=== PATIENT | male | born 1975 | race Caucasian/White ===

== ENCOUNTER 2018-10-12 08:43 | Inpatient (IN) | payer BC ==
[~2018-10-12] VITALS: Ht 180.3 cm; Wt 86.2 kg
[2018-10-12] MEDS ORDERED: NITROGLYCERIN SUBLINGUAL 0.4 MG BOTTLE OF 25. SL PRN ×2 (09:00→11:15)
[2018-10-12] MEDS ORDERED: ASPIRIN 325 MG TABLET PO ONE (09:00)
[2018-10-12] MEDS ORDERED: MORPHINE SULFATE 2 MG/ML VIAL. IV/SQ PRN (09:00)
--- NOTE | 2018-10-12 09:00 | PHYS DOC ---
Adult General Chief Complaint Chief Complaint: CHEST PAIN HPI HPI Patient is a 43 year old with history of high cholesterol, hypertension, not on any medications, smoking, who presents today complaining of 2/10 sharp substernal chest pain nonradiating in nature that began 2 days ago and has been going on intermittently since then, he states he has had episodes of shortness of breath and lightheadedness with the chest pain. Patient denies anything exacerbating or relieving the pain. Denies pain radiating. Patient denies taking anything specifically to relieve the pain. He states he was on his way to see Dr. Espinal for the first time and decided to come to the ED to be evaluated. Review of Systems Review of Systems Constitutional: Denies fever or chills [] Eyes: Denies change in visual acuity, redness, or eye pain [] HENT: Denies nasal congestion or sore throat [] Respiratory: Denies cough or shortness of breath [] Cardiovascular: Reports chest pain GI: Denies abdominal pain, nausea, vomiting, bloody stools or diarrhea [] : Denies dysuria or hematuria [] Musculoskeletal: Denies back pain or joint pain [] Integument: Denies rash or skin lesions [] Neurologic: Denies headache, focal weakness or sensory changes [] All other systems were reviewed and found to be within normal limits, except as documented in this note. Current Medications Current Medications Current Medications Medications (Trade) Dose Ordered Sig/Clemente Start Time Stop Time Status Last Admin Dose Admin Aspirin (Yanely Aspirin) 325 mg 1X ONCE 10/12/18 09:00 10/12/18 09:06 DC 10/12/18 09:54 325 MG Clonidine HCl (Catapres) 0.1 mg 1X ONCE 10/12/18 09:45 10/12/18 09:48 DC 10/12/18 10:18 0.1 MG Hydralazine HCl (Apresoline Inj) 10 mg 1X ONCE 10/12/18 11:00 10/12/18 11:01 DC Labetalol HCl (Normodyne Iv Push) 10 mg 1X ONCE 10/12/18 10:45 10/12/18 10:46 DC 10/12/18 10:59 10 MG Morphine Sulfate (Morphine Sulfate) 2 mg PRN Q15MIN PRN 10/12/18 09:00 10/13/18 08:59 10/12/18 09:56 2 MG Nitroglycerin (Nitrostat) 0.4 mg PRN Q5MIN PRN 10/12/18 09:00 10/13/18 08:59 10/12/18 09:55 0.4 MG Allergies Allergies Allergies Coded Allergies Type Severity Reaction Last Updated Verified Sulfa (Sulfonamide Antibiotics) Adverse Reaction Severe "my kidneys shut down" 10/12/18 Yes Tetanus Vaccines and Toxoid Adverse Reaction Intermediate fever 10/12/18 Yes Physical Exam Physical Exam Constitutional: Well developed, well nourished, no acute distress, non-toxic appearance. [] HENT: Normocephalic, atraumatic, bilateral external ears normal, oropharynx moist, no oral exudates, nose normal. [] Eyes: PERRLA, EOMI, conjunctiva normal, no discharge. [] Neck: Normal range of motion, no tenderness, supple, no stridor. [] Cardiovascular:Heart rate regular rhythm, no murmur [] Lungs & Thorax: Bilateral breath sounds clear to auscultation [] Abdomen: Bowel sounds normal, soft, no tenderness, no masses, no pulsatile masses. [] Skin: Warm, dry, no erythema, no rash. [] Back: No tenderness, no CVA tenderness. [] Extremities: No tenderness, no cyanosis, no clubbing, ROM intact, no edema. [] Neurologic: Alert and oriented X 3, normal motor function, normal sensory function, no focal deficits noted. [] Psychologic: Affect normal, judgement normal, mood normal. [] Current Patient Data Vital Signs Vital Signs Date Time Temp Pulse Resp B/P (MAP) Pulse Ox O2 Delivery O2 Flow Rate FiO2 10/12/18 10:59 94 185/107 10/12/18 10:55 16 97 Room Air 10/12/18 08:52 98.1 98.1 Lab Values Laboratory Tests Test 10/12/18 09:45 10/12/18 09:50 Urine Collection Type Unknown Urine Color Yellow Urine Clarity Clear Urine pH 5.5 Urine Specific [place] 1.015 Urine Protein Negative mg/dL (NEG-TRACE) Urine Glucose (UA) Negative mg/dL (NEG) Urine Ketones (Stick) Negative mg/dL (NEG) Urine Blood Negative (NEG) Urine Nitrite Negative (NEG) Urine Bilirubin Negative (NEG) Urine Urobilinogen Dipstick 0.2 mg/dL (0.2 mg/dL) Urine Leukocyte Esterase Negative (NEG) Urine RBC 0 /HPF (0-2) Urine WBC 0 /HPF (0-4) Urine Squamous Epithelial Cells Few /LPF Urine Bacteria 0 /HPF (0-FEW) Urine Opiates Screen Neg (NEG) Urine Methadone Screen Neg (NEG) Urine Barbiturates Neg (NEG) Urine Phencyclidine Screen Neg (NEG) Urine Amphetamine/Methamphetamine Neg (NEG) Urine Benzodiazepines Screen Neg (NEG) Urine Cocaine Screen Neg (NEG) Urine Cannabinoids Screen Neg (NEG) Urine Ethyl Alcohol Neg (NEG) White Blood Count 6.7 x10^3/uL (4.0-11.0) Red Blood Count 5.11 x10^6/uL (4.30-5.70) Hemoglobin 17.0 g/dL (13.0-17.5) Hematocrit 48.8 % (39.0-53.0) Mean Corpuscular Volume 95 fL (79-100) Mean Corpuscular Hemoglobin 33 pg (25-35) Mean Corpuscular Hemoglobin Concent 35 g/dL (31-37) Red Cell Distribution Width 13.5 % (11.5-14.5) Platelet Count 189 x10^3/uL (140-400) Neutrophils (%) (Auto) 67 % (31-73) Lymphocytes (%) (Auto) 23 % (24-48) L Monocytes (%) (Auto) 7 % (0-9) Eosinophils (%) (Auto) 2 % (0-3) Basophils (%) (Auto) 1 % (0-3) Neutrophils # (Auto) 4.5 x10^3uL (1.8-7.7) Lymphocytes # (Auto) 1.6 x10^3/uL (1.0-4.8) Monocytes # (Auto) 0.5 x10^3/uL (0.0-1.1) Eosinophils # (Auto) 0.1 x10^3/uL (0.0-0.7) Basophils # (Auto) 0.0 x10^3/uL (0.0-0.2) Prothrombin Time 12.4 SEC (11.7-14.0) Prothrombin Time INR 1.0 (0.8-1.1) PTT 26 SEC (24-38) D-Dimer (Gilda) < 0.27 ug/mlFEU Sodium Level 139 mmol/L (136-145) Potassium Level 4.6 mmol/L (3.5-5.1) Chloride Level 102 mmol/L (98-107) Carbon Dioxide Level 26 mmol/L (21-32) Anion Gap 11 (6-14) Blood Urea Nitrogen 17 mg/dL (8-26) Creatinine 1.1 mg/dL (0.7-1.3) Estimated GFR (Cockcroft-Gault) 72.4 Glucose Level 121 mg/dL (70-99) H Calcium Level 9.9 mg/dL (8.5-10.1) Magnesium Level 1.9 mg/dL (1.8-2.4) Creatine Kinase 119 U/L (39-308) Creatine Kinase MB (Mass) 1.4 ng/mL (0.0-3.6) Creatine Kinase MB Relative Index 1.2 % (0-4) Troponin I Quantitative < 0.017 ng/mL (0.000-0.055) AM-Ydv-[id number]-Type Natriuretic Peptide 14 pg/mL (0-124) Thyroid Stimulating Hormone (TSH) 0.916 uIU/mL (0.358-3.74) Laboratory Tests 10/12/18 09:50 Laboratory Tests 10/12/18 09:50 EKG EKG 08:[address] Sterling-sinus rhythm HR 96 no STEMI[] Radiology/Procedures Radiology/Procedures []PROCEDURE: CT HEAD WO CONTRAST CT of the head without contrast, 10/12/2018: HISTORY: Lightheadedness The ventricles are within normal limits in size. There is no shift of the midline structures. There is no evidence of acute intracranial hemorrhage or mass effect. IMPRESSION: No acute intracranial abnormality is detected. RS Compliance Statement: One or more of the following individualized dose reduction techniques were utilized for this examination: 1. Automated exposure control 2. Adjustment of the mA and/or kV according to patient size 3. Use of iterative reconstruction technique Electronically signed by: Raza Silveira MD (10/12/2018 9:38 AM) [facility] DICTATED and SIGNED BY: RAZA SILVEIRA MD DATE: 10/12/18 0938 PROCEDURE: PORTABLE CHEST 1V PORTABLE CHEST 1V History: Midsternal chest pain for 2 days.. The heart size is not enlarged. No evidence of pneumothorax. No pleural effusion. No evidence of infiltrate. Bones appear intact. IMPRESSION: No acute infiltrate. Electronically signed by: Barry Carpio MD (10/12/2018 9:14 AM) [id number] DICTATED and SIGNED BY: BARRY CARPIO MD DATE: 10/12/18 0914 Course & Med Decision Making Course & Med Decision Making Pertinent Labs and Imaging studies reviewed. (See chart for details) This is a 43-year-old male patient presented to the ED today complaining of sub sternal chest pain, symptoms have been going on for 2 days with SOA and lightheadedness. Heart Score-3 EKG is negative, troponin is normal, chest x-ray is negative, CT of the head is negative. CBC with no acute findings, BMP with glucose of 127, d-dimer is normal Patient's blood pressure was 203/113 on arrival to the ED with a heart rate in the 90s. We gave him clonidine, blood pressure still in the 190s over low 100s. Ordered labetalol. Consulted with Dr. Luna who accepted patient for admission. He also requested hydralazine Page placed for Cardiology with routine consult in the computer Dragon Disclaimer Dragon Disclaimer This electronic medical record was generated, in whole or in part, using a voice recognition dictation system. Departure Departure Impression: Primary Impression: Smoking addiction Additional Impressions: Chest pain Accelerated hypertension Disposition: ADMITTED INPATIENT Condition: STABLE Problem Qualifiers Additional Impressions: Chest pain Chest pain type: unspecified Qualified Codes: R07.9 - Chest pain, unspecified IMAN GRAFF [employer] Oct 12, 2018 09:00
--- NOTE | 2018-10-12 09:03 | EKG ---
[facility] [address] [place] [address] Test Date: 2018-10-12 Test Time: 08:55:37 Pat Name: ALEN GARAY Department: Room: Gender: M Mill Worker: : 1975 Requested By: IMAN GRAFF Order Number: [id number] Reading MD: Measurements Intervals [place] Rate: 96 P: 49 LA: 152 QRS: 80 QRSD: 88 T: 66 QT: 348 QTc: 446 Interpretive Statements SINUS RHYTHM OTHERWISE NORMAL ECG RI6.01 Unconfirmed report No previous ECG available for comparison
--- NOTE | 2018-10-12 09:17 | RAD ---
PORTABLE CHEST 1V History: Midsternal chest pain for 2 days.. The heart size is not enlarged. No evidence of pneumothorax. No pleural effusion. No evidence of infiltrate. Bones appear intact. IMPRESSION: No acute infiltrate. Electronically signed by: Barry Carpio MD (10/12/2018 9:14 AM) [facility]
--- NOTE | 2018-10-12 09:42 | RAD ---
CT of the head without contrast, 10/12/2018: HISTORY: Lightheadedness The ventricles are within normal limits in size. There is no shift of the midline structures. There is no evidence of acute intracranial hemorrhage or mass effect. IMPRESSION: No acute intracranial abnormality is detected. RS Compliance Statement: One or more of the following individualized dose reduction techniques were utilized for this examination: 1. Automated exposure control 2. Adjustment of the mA and/or kV according to patient size 3. Use of iterative reconstruction technique Electronically signed by: Raza Silveira MD (10/12/2018 9:38 AM) [facility]
[2018-10-12] MEDS ORDERED: cloNIDine HCL 0.1 MG TABLET PO ONE (09:45)
[2018-10-12 09:58] LABS: BILIRUBIN,URINE NEGATIVE (NEG); CLARITY,URINE CLEAR; COLOR,URINE YELLOW; NITRITE,URINE NEGATIVE (NEG); PH,URINE 5.5; PROTEIN,URINE NEGATIVE (NEG-TRACE); UROBILINOGEN,URINE 0.2 mg/dL (0.2 mg/dL)
[2018-10-12 10:05] LABS: BARBITURATES NEG (NEG); BENZODIAZEPINES NEG (NEG); CANNABINOIDS NEG (NEG); COCAINE NEG (NEG); METHADONE NEG (NEG); OPIATES NEG (NEG); PHENCYCLIDINE NEG (NEG)
[2018-10-12 10:10] LABS: AMPHETAMINE/METHAMPHETAMINE NEG (NEG); BACTERIA,URINE 0 /HPF (0-FEW); RBC,URINE 0 /HPF (0-2); SQUAMOUS EPITHELIAL CELL,UR FEW /LPF; WBC,URINE 0 /HPF (0-4)
[2018-10-12 10:22] LABS: BASO % 1 % (0-3); EOS # 0.1 x10^3/uL (0.0-0.7); EOS % 2 % (0-3); HEMATOCRIT 48.8 % (39.0-53.0); LYMPH # 1.6 x10^3/uL (1.0-4.8); LYMPH % 23 % (24-48); MEAN CORPUSCULAR HEMOGLOBIN 33 pg (25-35); MEAN CORPUSCULAR HGB CONC 35 g/dL (31-37); MEAN CORPUSCULAR VOLUME 95 fL (79-100); MONO # 0.5 x10^3/uL (0.0-1.1); MONO % 7 % (0-9); NEUT # 4.5 x10^3uL (1.8-7.7); NEUT % 67 % (31-73); PLATELET COUNT 189 x10^3/uL (140-400); RED BLOOD COUNT 5.11 x10^6/uL (4.30-5.70); RED CELL DISTRIBUTION WIDTH 13.5 % (11.5-14.5); WHITE BLOOD COUNT 6.7 x10^3/uL (4.0-11.0)
[2018-10-12 10:26] LABS: CALCIUM 9.9 mg/dL (8.5-10.1); CREATININE 1.1 mg/dL (0.7-1.3); GFR 72.4; MAGNESIUM 1.9 mg/dL (1.8-2.4); POTASSIUM 4.6 mmol/L (3.5-5.1)
[2018-10-12 10:34] LABS: PARTIAL THROMBOPLASTIN TIME 26 SEC (24-38); PROTHROMBIN TIME PATIENT 12.4 SEC (11.7-14.0)
[2018-10-12] MEDS ORDERED: LABETALOL 20 MG/4 ML DISP.SYRIN. IVP ONE (10:45)
[2018-10-12 10:51] LABS: D-DIMER < 0.27 ug/mlFEU (0.00-0.50)
--- NOTE | 2018-10-12 10:58 | PDOC1 ---
History and Physical Date of Admission Date of Admission DATE: 10/12/18 TIME: 10:58 Identification/Chief Complaint Chief Complaint seen in er, 43 year old with history of high cholesterol, hypertension, not on any medications, smoking, who presents today complaining of 2/10 sharp substernal chest pain nonradiating in nature that began 2 days ago and has been going on intermittently since then, he states he has had episodes of shortness of breath and lightheadedness with the chest pain. Patient denies anything exacerbating or relieving the pain. Denies pain radiating woke up and felt like he was a dizzy but not bad enough that he was going to pass out. Past Medical History Past Medical History high cholesterol, hypertension Family History Family History: High Cholestrol, Hypertension Social History Smoke: <1 pack per day ALCOHOL: occassional Drugs: None Current Problem List Problem List Problems Medical Problems: (1) Smoking addiction Status: Acute Current Medications Current Medications Current Medications Aspirin (Yanely Aspirin) 325 mg 1X ONCE PO Last administered on 10/12/18at 09:54; Start 10/12/18 at 09:00; Stop 10/12/18 at 09:06; Status DC Nitroglycerin (Nitrostat) 0.4 mg PRN Q5MIN PRN SL CP RATING > 1/10 Last administered on 10/12/18at 09:55; Start 10/12/18 at 09:00; Stop 10/13/18 at 08:59 Morphine Sulfate (Morphine Sulfate) 2 mg PRN Q15MIN PRN IV/SQ PAIN GREATER THAN 3/10 Last administered on 10/12/18at 09:56; Start 10/12/18 at 09:00; Stop 10/13/18 at 08:59 Clonidine HCl (Catapres) 0.1 mg 1X ONCE PO Last administered on 10/12/18at 10:18; Start 10/12/18 at 09:45; Stop 10/12/18 at 09:48; Status DC Labetalol HCl (Normodyne Iv Push) 10 mg 1X ONCE IVP ; Start 10/12/18 at 10:45; Stop 10/12/18 at 10:46; Status DC Hydralazine HCl (Apresoline Inj) 10 mg 1X ONCE IVP ; Start 10/12/18 at 11:00; Stop 10/12/18 at 11:01; Status UNV Allergies Allergies: Coded Allergies: Sulfa (Sulfonamide Antibiotics) (Verified Adverse Reaction, Severe, "my kidneys shut down", 10/12/18) Tetanus Vaccines and Toxoid (Verified Adverse Reaction, Intermediate, fever, 10/12/18) ROS Review of System Review of Systems Review of Systems Constitutional: Denies fever or chills [] Eyes: Denies change in visual acuity, redness, or eye pain [] HENT: Denies nasal congestion or sore throat [] Respiratory: Denies cough or shortness of breath [] Cardiovascular: Reports chest pain, tingling left arm, not jaw GI: Denies abdominal pain, nausea, vomiting, bloody stools or diarrhea [] : Denies dysuria or hematuria [] Musculoskeletal: Denies back pain or joint pain [] Integument: Denies rash or skin lesions [] Neurologic: Denies headache, focal weakness or sensory changes [] 14 pt systems were reviewed and found to be within normal limits, except as documented PSYCHOLOGICAL ROS: No: Anxiety, Behavioral Disorder, Concentration difficultie, Decreased libido, Depression, Disorientation, Hallucinations, Hostility, Irritablity, Memory difficulties, Mood Swings, Obsessive thoughts, Physical abuse, Sexual abuse, Sleep disturbances, Suicidal ideation, Other Cardiovascular: yes Chest Pain Neurological: Yes Dizziness Physical Exam Physical Exam Physical Exam Physical Exam Constitutional: Well developed, well nourished, no acute distress, non-toxic appearance. [] HENT: Normocephalic, atraumatic, bilateral external ears normal, oropharynx moist, no oral exudates, nose normal. [] Eyes: PERRLA, EOMI, conjunctiva normal, no discharge. [] Neck: Normal range of motion, no tenderness, supple, no stridor. [] Cardiovascular:Heart rate regular rhythm, no murmur [] Lungs & Thorax: Bilateral breath sounds clear to auscultation [] Abdomen: Bowel sounds normal, soft, no tenderness, no masses, no pulsatile masses. [] Skin: Warm, dry, no erythema, no rash. [] Back: No tenderness, no CVA tenderness. [] Extremities: No tenderness, no cyanosis, no clubbing, ROM intact, no edema. [] Neurologic: Alert and oriented X 3, normal motor function, normal sensory function, no focal deficits noted. [] Psychologic: Affect normal, judgement normal, mood normal. [] General: Oriented X3, Cooperative, No acute distress HEENT: Atraumatic Lungs: Clear to auscultation Heart: RRR Abdomen: Normal bowel sounds, Soft, No tenderness Rectal Exam: not examined Extremities: No cyanosis Neuro: Normal speech, Strength at 5/5 X4 ext, Cranial nerves 3-12 NL Psych/Mental Status: Mental status NL, Mood NL Vitals Vitals Vital Signs Date Time Temp Pulse Resp B/P (MAP) Pulse Ox O2 Delivery O2 Flow Rate FiO2 10/12/18 10:55 90 16 182/107 (132) 97 Room Air 10/12/18 08:52 98.1 98.1 Labs Labs Laboratory Tests Test 10/12/18 09:45 10/12/18 09:50 Urine Collection Type Unknown Urine Color Yellow Urine Clarity Clear Urine pH 5.5 Urine Specific [place] 1.015 Urine Protein Negative mg/dL (NEG-TRACE) Urine Glucose (UA) Negative mg/dL (NEG) Urine Ketones (Stick) Negative mg/dL (NEG) Urine Blood Negative (NEG) Urine Nitrite Negative (NEG) Urine Bilirubin Negative (NEG) Urine Urobilinogen Dipstick 0.2 mg/dL (0.2 mg/dL) Urine Leukocyte Esterase Negative (NEG) Urine RBC 0 /HPF (0-2) Urine WBC 0 /HPF (0-4) Urine Squamous Epithelial Cells Few /LPF Urine Bacteria 0 /HPF (0-FEW) Urine Opiates Screen Neg (NEG) Urine Methadone Screen Neg (NEG) Urine Barbiturates Neg (NEG) Urine Phencyclidine Screen Neg (NEG) Urine Amphetamine/Methamphetamine Neg (NEG) Urine Benzodiazepines Screen Neg (NEG) Urine Cocaine Screen Neg (NEG) Urine Cannabinoids Screen Neg (NEG) Urine Ethyl Alcohol Neg (NEG) White Blood Count 6.7 x10^3/uL (4.0-11.0) Red Blood Count 5.11 x10^6/uL (4.30-5.70) Hemoglobin 17.0 g/dL (13.0-17.5) Hematocrit 48.8 % (39.0-53.0) Mean Corpuscular Volume 95 fL (79-100) Mean Corpuscular Hemoglobin 33 pg (25-35) Mean Corpuscular Hemoglobin Concent 35 g/dL (31-37) Red Cell Distribution Width 13.5 % (11.5-14.5) Platelet Count 189 x10^3/uL (140-400) Neutrophils (%) (Auto) 67 % (31-73) Lymphocytes (%) (Auto) 23 % (24-48) Monocytes (%) (Auto) 7 % (0-9) Eosinophils (%) (Auto) 2 % (0-3) Basophils (%) (Auto) 1 % (0-3) Neutrophils # (Auto) 4.5 x10^3uL (1.8-7.7) Lymphocytes # (Auto) 1.6 x10^3/uL (1.0-4.8) Monocytes # (Auto) 0.5 x10^3/uL (0.0-1.1) Eosinophils # (Auto) 0.1 x10^3/uL (0.0-0.7) Basophils # (Auto) 0.0 x10^3/uL (0.0-0.2) Prothrombin Time 12.4 SEC (11.7-14.0) Prothromb Time International Ratio 1.0 (0.8-1.1) Activated Partial Thromboplast Time 26 SEC (24-38) D-Dimer (Gilda) < 0.27 ug/mlFEU Sodium Level 139 mmol/L (136-145) Potassium Level 4.6 mmol/L (3.5-5.1) Chloride Level 102 mmol/L (98-107) Carbon Dioxide Level 26 mmol/L (21-32) Anion Gap 11 (6-14) Blood Urea Nitrogen 17 mg/dL (8-26) Creatinine 1.1 mg/dL (0.7-1.3) Estimated GFR (Cockcroft-Gault) 72.4 Glucose Level 121 mg/dL (70-99) Calcium Level 9.9 mg/dL (8.5-10.1) Magnesium Level 1.9 mg/dL (1.8-2.4) Creatine Kinase 119 U/L (39-308) Creatine Kinase MB (Mass) 1.4 ng/mL (0.0-3.6) Creatine Kinase MB Relative Index 1.2 % (0-4) Troponin I Quantitative < 0.017 ng/mL (0.000-0.055) YI-Apj-O-Type Natriuretic Peptide 14 pg/mL (0-124) Thyroid Stimulating Hormone (TSH) 0.916 uIU/mL (0.358-3.74) Laboratory Tests Test 10/12/18 09:45 10/12/18 09:50 Urine Collection Type Unknown Urine Color Yellow Urine Clarity Clear Urine pH 5.5 Urine Specific [place] 1.015 Urine Protein Negative mg/dL (NEG-TRACE) Urine Glucose (UA) Negative mg/dL (NEG) Urine Ketones (Stick) Negative mg/dL (NEG) Urine Blood Negative (NEG) Urine Nitrite Negative (NEG) Urine Bilirubin Negative (NEG) Urine Urobilinogen Dipstick 0.2 mg/dL (0.2 mg/dL) Urine Leukocyte Esterase Negative (NEG) Urine RBC 0 /HPF (0-2) Urine WBC 0 /HPF (0-4) Urine Squamous Epithelial Cells Few /LPF Urine Bacteria 0 /HPF (0-FEW) Urine Opiates Screen Neg (NEG) Urine Methadone Screen Neg (NEG) Urine Barbiturates Neg (NEG) Urine Phencyclidine Screen Neg (NEG) Urine Amphetamine/Methamphetamine Neg (NEG) Urine Benzodiazepines Screen Neg (NEG) Urine Cocaine Screen Neg (NEG) Urine Cannabinoids Screen Neg (NEG) Urine Ethyl Alcohol Neg (NEG) White Blood Count 6.7 x10^3/uL (4.0-11.0) Red Blood Count 5.11 x10^6/uL (4.30-5.70) Hemoglobin 17.0 g/dL (13.0-17.5) Hematocrit 48.8 % (39.0-53.0) Mean Corpuscular Volume 95 fL (79-100) Mean Corpuscular Hemoglobin 33 pg (25-35) Mean Corpuscular Hemoglobin Concent 35 g/dL (31-37) Red Cell Distribution Width 13.5 % (11.5-14.5) Platelet Count 189 x10^3/uL (140-400) Neutrophils (%) (Auto) 67 % (31-73) Lymphocytes (%) (Auto) 23 % (24-48) Monocytes (%) (Auto) 7 % (0-9) Eosinophils (%) (Auto) 2 % (0-3) Basophils (%) (Auto) 1 % (0-3) Neutrophils # (Auto) 4.5 x10^3uL (1.8-7.7) Lymphocytes # (Auto) 1.6 x10^3/uL (1.0-4.8) Monocytes # (Auto) 0.5 x10^3/uL (0.0-1.1) Eosinophils # (Auto) 0.1 x10^3/uL (0.0-0.7) Basophils # (Auto) 0.0 x10^3/uL (0.0-0.2) Prothrombin Time 12.4 SEC (11.7-14.0) Prothromb Time International Ratio 1.0 (0.8-1.1) Activated Partial Thromboplast Time 26 SEC (24-38) D-Dimer (Gilda) < 0.27 ug/mlFEU Sodium Level 139 mmol/L (136-145) Potassium Level 4.6 mmol/L (3.5-5.1) Chloride Level 102 mmol/L (98-107) Carbon Dioxide Level 26 mmol/L (21-32) Anion Gap 11 (6-14) Blood Urea Nitrogen 17 mg/dL (8-26) Creatinine 1.1 mg/dL (0.7-1.3) Estimated GFR (Cockcroft-Gault) 72.4 Glucose Level 121 mg/dL (70-99) Calcium Level 9.9 mg/dL (8.5-10.1) Magnesium Level 1.9 mg/dL (1.8-2.4) Creatine Kinase 119 U/L (39-308) Creatine Kinase MB (Mass) 1.4 ng/mL (0.0-3.6) Creatine Kinase MB Relative Index 1.2 % (0-4) Troponin I Quantitative < 0.017 ng/mL (0.000-0.055) NS-Zvk-Z-Type Natriuretic Peptide 14 pg/mL (0-124) Thyroid Stimulating Hormone (TSH) 0.916 uIU/mL (0.358-3.74) Images Images CT of the head without contrast, 10/12/2018: HISTORY: Lightheadedness The ventricles are within normal limits in size. There is no shift of the midline structures. There is no evidence of acute intracranial hemorrhage or mass effect. IMPRESSION: No acute intracranial abnormality is detected. RS Compliance Statement: One or more of the following individualized dose reduction techniques were utilized for this examination: 1. Automated exposure control 2. Adjustment of the mA and/or kV according to patient size 3. Use of iterative reconstruction technique Electronically signed by: Raza Silveira MD (10/12/2018 9:38 AM) [facility] VTE Prophylaxis Ordered VTE Prophylaxis Devices: Yes VTE Pharmacological Prophylaxi: Yes Assessment/Plan Assessment/Plan impression 1. chest pain, at high risk for CAD 2. tobacco abuse 3. uncontrolled htn PLAN ADMIT TO [facility]VC Cardiology consult echo lipids, trend troponin Smoking cessation, DASH diet lisinopril/chlorthalidone prn iv hydralazine 74 min pt exam, chart review> 50% of time spent with exam, chart review, pt care coordination, disease education DELL BAUER MD Oct 12, 2018 10:58
[2018-10-12] MEDS ORDERED: hydrALAZINE 20 MG/ML VIAL. IVP ONE (11:00)
[2018-10-12] MEDS ORDERED: MORPHINE SULFATE 2 MG/ML VIAL. IV PRN (11:15)
[2018-10-12] MEDS ORDERED: ONDANSETRON PF 4 MG/2 ML VIAL. IV PRN (11:15)
[2018-10-12] MEDS ORDERED: ACETAMINOPHEN 325 MG TABLET. PO PRN (11:15)
[2018-10-12 12:05] VITALS: BP 166/104
[2018-10-12] MEDS ORDERED: LISINOPRIL 10 MG TABLET PO ONE (12:45)
--- NOTE | 2018-10-12 12:57 | PDOC2 ---
ED MONTERROSO RIP AND GROOVE MACHINE OPERATOR 10/12/18 1257: CARDIAC CONSULT DATE OF CONSULT Date of Consult DATE: 10/12/18 TIME: 12:30 REASON FOR CONSULT Reason for Consult: Chest pain REFERRING PHYSICIAN Referring Physician: Marco Antonio SOURCE Source: Chart review, Patient HISTORY OF PRESENT ILLNESS HISTORY OF PRESENT ILLNESS This is a pleasant 43 yo male admitted for complains of dizziness and chest pain. Reports that he was suppose to go to his PCP today but he was not feeling well. He woke up and felt like he was a little dizzy but not bad enough that he was going to pass out. Reports no nausea or vomiting and no issues with SOA but felt some chest tightness but more of pounding. No visual or auditory disturbances or any focal symptoms. He was approx diagnosed with HTN 7 yrs ago but stopped taking his medication 5 yrs ago and could not remember when was the last time he took statins. He does not take routine NSAIDs no issues with chronic pain and denies any exertional CP nor TIRADO. Reports that he does not work and smoe tobacco but no recreational drugs. He drinks beer twice a week 6 pack in 1 sitting. No recent falls injury, and no hx of CAD, VTE or CVA. PAST MEDICAL HISTORY Cardiovascular: HTN, Hyperlipidemia Pulmonary: No pertinent hx CENTRAL NERVOUS SYSTEM: Other (No pertinent history) GI: No pertinent hx Heme/Onc: No pertinent hx Hepatobiliary: No pertinent hx Psych: No pertinent hx Musculoskeletal: Osteoarthritis Rheumatologic: No pertinent hx Infectious disease: No pertinent hx ENT: No pertinent hx Renal/: No pertinent hx Endocrine: No pertinent hx Dermatology: No pertinent hx PAST SURGICAL HISTORY Past Surgical History: No pertinent history FAMILY HISTORY Family History: Coronary Artery Disease (father at 49), Heart Disease (brother with CHF) SOCIAL HISTORY Smoke: 1 pack per day (>20 yrs) ALCOHOL: occassional Drugs: None Lives: with Family CURRENT MEDICATIONS CURRENT MEDICATIONS Current Medications Medications (Trade) Dose Ordered Sig/Clemente Route PRN Reason Start Time Stop Time Status Last Admin Dose Admin Aspirin (Yanely Aspirin) 325 mg 1X ONCE PO 10/12/18 09:00 10/12/18 09:06 DC 10/12/18 09:54 Nitroglycerin (Nitrostat) 0.4 mg PRN Q5MIN PRN SL CP RATING > 1/10 10/12/18 09:00 10/12/18 11:17 DC 10/12/18 09:55 Morphine Sulfate (Morphine Sulfate) 2 mg PRN Q15MIN PRN IV/SQ PAIN GREATER THAN 3/10 10/12/18 09:00 10/12/18 11:17 DC 10/12/18 09:56 Clonidine HCl (Catapres) 0.1 mg 1X ONCE PO 10/12/18 09:45 10/12/18 09:48 DC 10/12/18 10:18 Labetalol HCl (Normodyne Iv Push) 10 mg 1X ONCE IVP 10/12/18 10:45 10/12/18 10:46 DC 10/12/18 10:59 ALLERGIES ALLERGIES: Coded Allergies: Sulfa (Sulfonamide Antibiotics) (Verified Adverse Reaction, Severe, "my kidneys shut down", 10/12/18) Tetanus Vaccines and Toxoid (Verified Adverse Reaction, Intermediate, fever, 10/12/18) ROS Review of System 14 point ROS evaluated with pertinent positives noted per HPI PHYSICAL EXAM General: Alert, Oriented X3, Cooperative, No acute distress HEENT: Atraumatic, Mucous membr. moist/pink Lungs: Clear to auscultation, Normal air movement Heart: Regular rate (SR), Normal S1, Normal S2, Other (2/6 systolic murmur to LLS border) Abdomen: Soft, No tenderness Extremities: No cyanosis, No edema Skin: No breakdown, No significant lesion Neuro: Normal speech, Sensation intact Psych/Mental Status: Mental status NL, Mood NL MUSCULOSKELETAL: Osteoarthritic changes both hands VITALS VITALS Vital Signs Date Time Temp Pulse Resp B/P (MAP) Pulse Ox O2 Delivery O2 Flow Rate FiO2 10/12/18 11:59 84 18 160/105 (123) 97 Room Air 10/12/18 08:52 98.1 98.1 LABS Lab: Laboratory Tests Test 10/12/18 09:45 10/12/18 09:50 Urine Collection Type Unknown Urine Color Yellow Urine Clarity Clear Urine pH 5.5 Urine Specific [place] 1.015 Urine Protein Negative mg/dL (NEG-TRACE) Urine Glucose (UA) Negative mg/dL (NEG) Urine Ketones (Stick) Negative mg/dL (NEG) Urine Blood Negative (NEG) Urine Nitrite Negative (NEG) Urine Bilirubin Negative (NEG) Urine Urobilinogen Dipstick 0.2 mg/dL (0.2 mg/dL) Urine Leukocyte Esterase Negative (NEG) Urine RBC 0 /HPF (0-2) Urine WBC 0 /HPF (0-4) Urine Squamous Epithelial Cells Few /LPF Urine Bacteria 0 /HPF (0-FEW) Urine Opiates Screen Neg (NEG) Urine Methadone Screen Neg (NEG) Urine Barbiturates Neg (NEG) Urine Phencyclidine Screen Neg (NEG) Urine Amphetamine/Methamphetamine Neg (NEG) Urine Benzodiazepines Screen Neg (NEG) Urine Cocaine Screen Neg (NEG) Urine Cannabinoids Screen Neg (NEG) Urine Ethyl Alcohol Neg (NEG) White Blood Count 6.7 x10^3/uL (4.0-11.0) Red Blood Count 5.11 x10^6/uL (4.30-5.70) Hemoglobin 17.0 g/dL (13.0-17.5) Hematocrit 48.8 % (39.0-53.0) Mean Corpuscular Volume 95 fL (79-100) Mean Corpuscular Hemoglobin 33 pg (25-35) Mean Corpuscular Hemoglobin Concent 35 g/dL (31-37) Red Cell Distribution Width 13.5 % (11.5-14.5) Platelet Count 189 x10^3/uL (140-400) Neutrophils (%) (Auto) 67 % (31-73) Lymphocytes (%) (Auto) 23 % (24-48) Monocytes (%) (Auto) 7 % (0-9) Eosinophils (%) (Auto) 2 % (0-3) Basophils (%) (Auto) 1 % (0-3) Neutrophils # (Auto) 4.5 x10^3uL (1.8-7.7) Lymphocytes # (Auto) 1.6 x10^3/uL (1.0-4.8) Monocytes # (Auto) 0.5 x10^3/uL (0.0-1.1) Eosinophils # (Auto) 0.1 x10^3/uL (0.0-0.7) Basophils # (Auto) 0.0 x10^3/uL (0.0-0.2) Prothrombin Time 12.4 SEC (11.7-14.0) Prothromb Time International Ratio 1.0 (0.8-1.1) Activated Partial Thromboplast Time 26 SEC (24-38) D-Dimer (Gilda) < 0.27 ug/mlFEU Sodium Level 139 mmol/L (136-145) Potassium Level 4.6 mmol/L (3.5-5.1) Chloride Level 102 mmol/L (98-107) Carbon Dioxide Level 26 mmol/L (21-32) Anion Gap 11 (6-14) Blood Urea Nitrogen 17 mg/dL (8-26) Creatinine 1.1 mg/dL (0.7-1.3) Estimated GFR (Cockcroft-Gault) 72.4 Glucose Level 121 mg/dL (70-99) Calcium Level 9.9 mg/dL (8.5-10.1) Magnesium Level 1.9 mg/dL (1.8-2.4) Creatine Kinase 119 U/L (39-308) Creatine Kinase MB (Mass) 1.4 ng/mL (0.0-3.6) Creatine Kinase MB Relative Index 1.2 % (0-4) Troponin I Quantitative < 0.017 ng/mL (0.000-0.055) IV-Xqu-A-Type Natriuretic Peptide 14 pg/mL (0-124) Thyroid Stimulating Hormone (TSH) 0.916 uIU/mL (0.358-3.74) ASSESSMENT/PLAN ASSESSMENT/PLAN 1. Accelerated HTN 2. Dizziness and chest tightness: possibly from uncontrolled HTN 3. HLP 4. Noncompliance: last med use for HTn was 5 yrs ago. 5. Tobaccoism 6. Family hx of premature CAD Recommendations 1. TTE, lipids, trend troponin 2. Smoking cessation, dietitian for DASH diet 3. Start on lisinopril/chlorthalidone 4. Follow up in 4 weeks if test are unremarkable and will plan for outpt stress test. ENRIQUE THOMAS MD 10/13/18 0857: CARDIAC CONSULT ASSESSMENT/PLAN ASSESSMENT/PLAN Patient seen and examined 10/12/18. Agree with NET WEB APPLICATION DEVELOPER's assessment and plan. Blood pressure better controlled since admission. 2-D echo showed normal LV systolic function. Importance of compliance with medications reemphasized. Plan outpatient ischemic evaluation. Thank you for your consultation. ED MONTERROSO APRN Oct 12, 2018 12:57 ENRIQUE THOMAS MD Oct 13, 2018 08:57
[2018-10-12] MEDS: CHLORTHALIDONE 25 MG TABLET. PO SCH (13:15)
[2018-10-12] MEDS ORDERED: no home medications (13:41)
[2018-10-12 16:00] VITALS: BP 144/88
--- NOTE | 2018-10-12 16:13 | CARD ---
MR#: [id number] Date of Study: 10/12/2018 Ordering Physician: ED MONTERROSO, Referring Physician: DELL BAUER, Tech: Alexandra Ontiveros APPROVED REPORT EXAM: Two-dimensional and M-mode echocardiogram with Doppler and color Doppler. Other Information Quality : AverageHR: 91bpm INDICATION Hypertension/HCVD RISK FACTORS Hyperlipidemia Smoking 2D DIMENSIONS RVDd2.3 (2.9-3.5cm)Left Atrium(2D)3.2 (1.6-4.0cm) IVSd0.9 (0.7-1.1cm)Aortic Root(2D)3.8 (2.0-3.7cm) LVDd4.9 (3.9-5.9cm)LVOT Diameter2.3 (1.8-2.4cm) PWd1.1 (0.7-1.1cm)LVDs3.0 (2.5-4.0cm) FS (%) 39.8 %SV80.7 ml LVEF(%)70.2 (>50%) Aortic Valve AoV Peak Keyshawn.123.2cm/sAoV VTI18.8cm AO Peak GR.6.1mmHgLVOT Peak Keyshawn.100.1cm/s LVOT VTI 16.35cmAO Mean GR.3mmHg KAYLIN (VMAX)2.53xs5NPN (VTI)3.70cm2 Mitral Valve MV E Svtjqnnu22.3cm/sMV DECEL OUDJ137gd MV A Zgznbcbj80.2cm/sMV MSU56el E/A Ratio0.9MVA (PHT)4.16cm2 TDI E/Lateral E'7.1E/Medial E'10.0 Pulmonary Valve PV Peak Ukrvnrxj585.6cm/sPV Peak Grad.6mmHg Tricuspid Valve RAP [id number] Pulmonary Vein S1 Clxiwnxq46.5cm/sD2 Ygcpfcie89.9cm/s PVa [id number] LEFT VENTRICLE The left ventricle is normal size. There is borderline concentric left ventricular hypertrophy. The l eft ventricular systolic function is normal and the ejection fraction is within normal range. The Eje ction Fraction is >55%. There is normal LV segmental wall motion. Transmitral Doppler flow pattern is Grade I-abnormal relaxation pattern. RIGHT VENTRICLE The right ventricle is normal size. There is normal right ventricular wall thickness. The right ventr icular systolic function is normal. ATRIA The left atrium size is normal. The right atrium size is normal. Interatrial septal thickening is not ed. AORTIC VALVE The aortic valve is normal in structure and function. Doppler and Color Flow revealed no significant aortic regurgitation. There is no significant aortic valvular stenosis. MITRAL VALVE The mitral valve is normal in structure and function. There is no evidence of mitral valve prolapse. There is no mitral valve stenosis. Doppler and Color Flow revealed no mitral valve regurgitation note d. TRICUSPID VALVE The tricuspid valve is normal in structure and function. Doppler and Color Flow revealed trace tricus pid regurgitation with an estimated PAP of 26 mmHg. There is no tricuspid valve stenosis. PULMONIC VALVE The pulmonic valve is not well visualized. Doppler and Color Flow revealed no pulmonic valvular regur gitation. GREAT VESSELS The aortic root is normal in size. The IVC is normal in size and collapses >50% with inspiration. PERICARDIAL EFFUSION There is no evidence of significant pericardial effusion. Critical Notification Critical Value: No <Conclusion> The left ventricular systolic function is normal and the ejection fraction is within normal range. Th e Ejection Fraction is >55%. There is normal LV segmental wall motion. Signed by : Israel Bolden, Electronically Approved : 10/12/2018 16:12:12
[2018-10-12 19:05] VITALS: BP 132/88
[2018-10-12 23:05] VITALS: BP 128/91
[2018-10-13 03:10] VITALS: BP 118/89
[2018-10-13 05:23] LABS: BASO % 1 % (0-3); EOS # 0.3 x10^3/uL (0.0-0.7); EOS % 3 % (0-3); HEMATOCRIT 46.2 % (39.0-53.0); LYMPH # 3.4 x10^3/uL (1.0-4.8); LYMPH % 41 % (24-48); MEAN CORPUSCULAR HEMOGLOBIN 33 pg (25-35); MEAN CORPUSCULAR HGB CONC 35 g/dL (31-37); MEAN CORPUSCULAR VOLUME 96 fL (79-100); MONO # 0.7 x10^3/uL (0.0-1.1); MONO % 9 % (0-9); NEUT # 3.9 x10^3uL (1.8-7.7); NEUT % 47 % (31-73); PLATELET COUNT 178 x10^3/uL (140-400); RED BLOOD COUNT 4.81 x10^6/uL (4.30-5.70); RED CELL DISTRIBUTION WIDTH 13.5 % (11.5-14.5); WHITE BLOOD COUNT 8.3 x10^3/uL (4.0-11.0)
[2018-10-13 05:49] LABS: CALCIUM 9.4 mg/dL (8.5-10.1); GFR 80.8; POTASSIUM 3.9 mmol/L (3.5-5.1)
[2018-10-13 05:58] LABS: CHOLESTEROL/HDL RATIO 4.8
[2018-10-13 07:00] VITALS: BP 145/87
[2018-10-13] MEDS ORDERED: LISINOPRIL 10 MG TABLET PO SCH (09:00)
[2018-10-13] MEDS: CHLORTHALIDONE 25 MG TABLET. PO SCH (09:28)
[2018-10-13] MEDS ORDERED: ATOR40TA59 PO (09:36)
[2018-10-13] MEDS ORDERED: CHLO25TA10 PO (09:36)
[2018-10-13] MEDS ORDERED: LISI10TA2 PO (09:36)
[2018-10-13] MEDS ORDERED: NITR0.4T SL (09:36)
--- NOTE | 2018-10-13 10:38 | PDOC3 ---
Discharge Summary Visit Information Date of Admission: Oct 12, 2018 Date of Discharge: Oct 13, 2018 Admitting Diagnosis Comment: 1. Accelerated HTN 2. Dizziness and chest tightness: possibly from uncontrolled HTN 3. HLP 4. Noncompliance: last med use for HTn was 5 yrs ago. 5. Tobaccoism 6. Family hx of premature CAD Final Diagnosis Problems Medical Problems: (1) Accelerated hypertension Status: Acute (2) Chest pain Status: Acute (3) Smoking addiction Status: Acute Brief Hospital Course Allergies Allergies Coded Allergies Type Severity Reaction Last Updated Verified Sulfa (Sulfonamide Antibiotics) Adverse Reaction Severe "my kidneys shut down" 10/12/18 Yes Tetanus Vaccines and Toxoid Adverse Reaction Intermediate fever 10/12/18 Yes Vital Signs Vital Signs Date Time Temp Pulse Resp B/P (MAP) Pulse Ox O2 Delivery O2 Flow Rate FiO2 10/13/18 09:29 64 145/87 10/13/18 07:00 98.0 16 99 Room Air 98.0 Lab Results Laboratory Tests Test 10/12/18 09:45 10/12/18 09:50 10/12/18 12:50 10/12/18 16:10 Urine Collection Type Unknown Urine Color Yellow Urine Clarity Clear Urine pH 5.5 Urine Specific [place] 1.015 Urine Protein Negative mg/dL (NEG-TRACE) Urine Glucose (UA) Negative mg/dL (NEG) Urine Ketones (Stick) Negative mg/dL (NEG) Urine Blood Negative (NEG) Urine Nitrite Negative (NEG) Urine Bilirubin Negative (NEG) Urine Urobilinogen Dipstick 0.2 mg/dL (0.2 mg/dL) Urine Leukocyte Esterase Negative (NEG) Urine RBC 0 /HPF (0-2) Urine WBC 0 /HPF (0-4) Urine Squamous Epithelial Cells Few /LPF Urine Bacteria 0 /HPF (0-FEW) Urine Opiates Screen Neg (NEG) Urine Methadone Screen Neg (NEG) Urine Barbiturates Neg (NEG) Urine Phencyclidine Screen Neg (NEG) Urine Amphetamine/Methamphetamine Neg (NEG) Urine Benzodiazepines Screen Neg (NEG) Urine Cocaine Screen Neg (NEG) Urine Cannabinoids Screen Neg (NEG) Urine Ethyl Alcohol Neg (NEG) White Blood Count 6.7 x10^3/uL (4.0-11.0) Red Blood Count 5.11 x10^6/uL (4.30-5.70) Hemoglobin 17.0 g/dL (13.0-17.5) Hematocrit 48.8 % (39.0-53.0) Mean Corpuscular Volume 95 fL (79-100) Mean Corpuscular Hemoglobin 33 pg (25-35) Mean Corpuscular Hemoglobin Concent 35 g/dL (31-37) Red Cell Distribution Width 13.5 % (11.5-14.5) Platelet Count 189 x10^3/uL (140-400) Neutrophils (%) (Auto) 67 % (31-73) Lymphocytes (%) (Auto) 23 % (24-48) Monocytes (%) (Auto) 7 % (0-9) Eosinophils (%) (Auto) 2 % (0-3) Basophils (%) (Auto) 1 % (0-3) Neutrophils # (Auto) 4.5 x10^3uL (1.8-7.7) Lymphocytes # (Auto) 1.6 x10^3/uL (1.0-4.8) Monocytes # (Auto) 0.5 x10^3/uL (0.0-1.1) Eosinophils # (Auto) 0.1 x10^3/uL (0.0-0.7) Basophils # (Auto) 0.0 x10^3/uL (0.0-0.2) Prothrombin Time 12.4 SEC (11.7-14.0) Prothromb Time International Ratio 1.0 (0.8-1.1) Activated Partial Thromboplast Time 26 SEC (24-38) D-Dimer (Gilda) < 0.27 ug/mlFEU Sodium Level 139 mmol/L (136-145) Potassium Level 4.6 mmol/L (3.5-5.1) Chloride Level 102 mmol/L (98-107) Carbon Dioxide Level 26 mmol/L (21-32) Anion Gap 11 (6-14) Blood Urea Nitrogen 17 mg/dL (8-26) Creatinine 1.1 mg/dL (0.7-1.3) Estimated GFR (Cockcroft-Gault) 72.4 Glucose Level 121 mg/dL (70-99) Calcium Level 9.9 mg/dL (8.5-10.1) Magnesium Level 1.9 mg/dL (1.8-2.4) Creatine Kinase 119 U/L (39-308) Creatine Kinase MB (Mass) 1.4 ng/mL (0.0-3.6) Creatine Kinase MB Relative Index 1.2 % (0-4) Troponin I Quantitative < 0.017 ng/mL (0.000-0.055) < 0.017 ng/mL (0.000-0.055) < 0.017 ng/mL (0.000-0.055) RY-Bfw-E-Type Natriuretic Peptide 14 pg/mL (0-124) Thyroid Stimulating Hormone (TSH) 0.916 uIU/mL (0.358-3.74) Test 10/13/18 05:00 White Blood Count 8.3 x10^3/uL (4.0-11.0) Red Blood Count 4.81 x10^6/uL (4.30-5.70) Hemoglobin 16.0 g/dL (13.0-17.5) Hematocrit 46.2 % (39.0-53.0) Mean Corpuscular Volume 96 fL (79-100) Mean Corpuscular Hemoglobin 33 pg (25-35) Mean Corpuscular Hemoglobin Concent 35 g/dL (31-37) Red Cell Distribution Width 13.5 % (11.5-14.5) Platelet Count 178 x10^3/uL (140-400) Neutrophils (%) (Auto) 47 % (31-73) Lymphocytes (%) (Auto) 41 % (24-48) Monocytes (%) (Auto) 9 % (0-9) Eosinophils (%) (Auto) 3 % (0-3) Basophils (%) (Auto) 1 % (0-3) Neutrophils # (Auto) 3.9 x10^3uL (1.8-7.7) Lymphocytes # (Auto) 3.4 x10^3/uL (1.0-4.8) Monocytes # (Auto) 0.7 x10^3/uL (0.0-1.1) Eosinophils # (Auto) 0.3 x10^3/uL (0.0-0.7) Basophils # (Auto) 0.0 x10^3/uL (0.0-0.2) Sodium Level 139 mmol/L (136-145) Potassium Level 3.9 mmol/L (3.5-5.1) Chloride Level 103 mmol/L (98-107) Carbon Dioxide Level 25 mmol/L (21-32) Anion Gap 11 (6-14) Blood Urea Nitrogen 16 mg/dL (8-26) Creatinine 1.0 mg/dL (0.7-1.3) Estimated GFR (Cockcroft-Gault) 80.8 Glucose Level 98 mg/dL (70-99) Calcium Level 9.4 mg/dL (8.5-10.1) Triglycerides Level 103 mg/dL (0-150) Cholesterol Level 241 mg/dL (0-200) LDL Cholesterol, Calculated 170 mg/dL (0-100) VLDL Cholesterol, Calculated 21 mg/dL (0-40) Non-HDL Cholesterol Calculated 191 mg/dL (0-129) HDL Cholesterol 50 mg/dL (40-60) Cholesterol/HDL Ratio 4.8 Laboratory Tests Test 10/12/18 12:50 10/12/18 16:10 10/13/18 05:00 Troponin I Quantitative < 0.017 ng/mL (0.000-0.055) < 0.017 ng/mL (0.000-0.055) White Blood Count 8.3 x10^3/uL (4.0-11.0) Red Blood Count 4.81 x10^6/uL (4.30-5.70) Hemoglobin 16.0 g/dL (13.0-17.5) Hematocrit 46.2 % (39.0-53.0) Mean Corpuscular Volume 96 fL (79-100) Mean Corpuscular Hemoglobin 33 pg (25-35) Mean Corpuscular Hemoglobin Concent 35 g/dL (31-37) Red Cell Distribution Width 13.5 % (11.5-14.5) Platelet Count 178 x10^3/uL (140-400) Neutrophils (%) (Auto) 47 % (31-73) Lymphocytes (%) (Auto) 41 % (24-48) Monocytes (%) (Auto) 9 % (0-9) Eosinophils (%) (Auto) 3 % (0-3) Basophils (%) (Auto) 1 % (0-3) Neutrophils # (Auto) 3.9 x10^3uL (1.8-7.7) Lymphocytes # (Auto) 3.4 x10^3/uL (1.0-4.8) Monocytes # (Auto) 0.7 x10^3/uL (0.0-1.1) Eosinophils # (Auto) 0.3 x10^3/uL (0.0-0.7) Basophils # (Auto) 0.0 x10^3/uL (0.0-0.2) Sodium Level 139 mmol/L (136-145) Potassium Level 3.9 mmol/L (3.5-5.1) Chloride Level 103 mmol/L (98-107) Carbon Dioxide Level 25 mmol/L (21-32) Anion Gap 11 (6-14) Blood Urea Nitrogen 16 mg/dL (8-26) Creatinine 1.0 mg/dL (0.7-1.3) Estimated GFR (Cockcroft-Gault) 80.8 Glucose Level 98 mg/dL (70-99) Calcium Level 9.4 mg/dL (8.5-10.1) Triglycerides Level 103 mg/dL (0-150) Cholesterol Level 241 mg/dL (0-200) LDL Cholesterol, Calculated 170 mg/dL (0-100) VLDL Cholesterol, Calculated 21 mg/dL (0-40) Non-HDL Cholesterol Calculated 191 mg/dL (0-129) HDL Cholesterol 50 mg/dL (40-60) Cholesterol/HDL Ratio 4.8 Brief Hospital Course Mr. Tijerina is a 43 old white male who does not take any meds coming in because of chest pain and very high blood pressure. Echo was normal but we needed to start some new home meds including lisinopril, HCTZ, statin, nitroglycerin sublingual. Did also advise aspirin [id number] He's feeling much better, blood pressure good Consults performed cardiology Procedures performed echo, follow up cards in 4 weeks for blood pressure and possible outpatient MPI if warranted Discussed with at bedside dc < 30 Discharge Information Condition at Discharge: Improved, Stable Follow Up: Weeks (4 weeks cards for OP MPI) Disposition/Orders: D/C to Home Scheduled Atorvastatin Calcium (Atorvastatin Calcium) 40 Mg Tablet, 40 MG PO QHS for hlp, #60 Prescribed by: JAYSHREE DAVILA on 10/13/18 0936 Chlorthalidone (Chlorthalidone ) 25 Mg Tablet, 25 MG PO DAILY for htn, #60 Prescribed by: JAYSHREE DAVILA on 6/21/19 0936 Lisinopril (Lisinopril) 10 Mg Tablet, 10 MG PO DAILY for htn, #60 Prescribed by: JAYSHREE DAVILA on 10/13/18935 Scheduled PRN Nitroglycerin (Nitrostat) 0.4 Mg Tab.subl, 0.4 MG SL PRN Q5MIN PRN for CHEST PAIN, #60 Prescribed by: JAYSHREE DAVILA on 10/13/18935 Discontinued Medications [no home medications] , (Reported) Entered as Reported by: IVA MORRISON on 10/12/181340 Last Action: New Order on 10/12/181340 by JAYSHREE SWEET MD Oct 13, 2018 10:38
[2018-10-13 11:00] VITALS: BP 144/91
--- NOTE | 2018-10-13 11:04 | NUR ---
SS following for discharge planning. SS reviewed pt chart. Discharge order on the chart. Pt is from home and is currently on room air.
--- NOTE | 2018-10-13 11:54 | NUR ---
Discharge Note: ALEN GARAY W2 [facility] Discharge instructions and discharge home medications reviewed with Patient and a copy given. All questions have been answered and understanding verbalized. The following instructions and handouts were given: CP, DASH diet, HTN, smoking cessations and tips for success Discontinued lines and drains: Peripheral IV intact. Patient discharged to Home or Self Care with Spouse via Wheelchair
--- NOTE | 2018-10-13 12:15 | PDOC ---
ED MONTERROSO PUMPMAN 10/13/18 1215: CARDIO Progress Notes Date and Time Date of Service 10/13/2018 Time of Evaluation 1110 Subjective Subjective: No Chest Pain, No shortness of breath, No Palpitations Vitals Vitals Vital Signs Date Time Temp Pulse Resp B/P (MAP) Pulse Ox O2 Delivery O2 Flow Rate FiO2 10/13/18 11:00 97.7 77 16 144/91 (108) 95 Room Air 97.7 Weight Weight [ ] Input and Output Intake and Output Intake and Output 10/13/18 07:00 Intake Total 550 ml Balance 550 ml Intake Oral 550 ml # Voids 3 Laboratory Labs Laboratory Tests Test 10/12/18 12:50 10/12/18 16:10 10/13/18 05:00 Troponin I Quantitative < 0.017 ng/mL (0.000-0.055) < 0.017 ng/mL (0.000-0.055) White Blood Count 8.3 x10^3/uL (4.0-11.0) Red Blood Count 4.81 x10^6/uL (4.30-5.70) Hemoglobin 16.0 g/dL (13.0-17.5) Hematocrit 46.2 % (39.0-53.0) Mean Corpuscular Volume 96 fL (79-100) Mean Corpuscular Hemoglobin 33 pg (25-35) Mean Corpuscular Hemoglobin Concent 35 g/dL (31-37) Red Cell Distribution Width 13.5 % (11.5-14.5) Platelet Count 178 x10^3/uL (140-400) Neutrophils (%) (Auto) 47 % (31-73) Lymphocytes (%) (Auto) 41 % (24-48) Monocytes (%) (Auto) 9 % (0-9) Eosinophils (%) (Auto) 3 % (0-3) Basophils (%) (Auto) 1 % (0-3) Neutrophils # (Auto) 3.9 x10^3uL (1.8-7.7) Lymphocytes # (Auto) 3.4 x10^3/uL (1.0-4.8) Monocytes # (Auto) 0.7 x10^3/uL (0.0-1.1) Eosinophils # (Auto) 0.3 x10^3/uL (0.0-0.7) Basophils # (Auto) 0.0 x10^3/uL (0.0-0.2) Sodium Level 139 mmol/L (136-145) Potassium Level 3.9 mmol/L (3.5-5.1) Chloride Level 103 mmol/L (98-107) Carbon Dioxide Level 25 mmol/L (21-32) Anion Gap 11 (6-14) Blood Urea Nitrogen 16 mg/dL (8-26) Creatinine 1.0 mg/dL (0.7-1.3) Estimated GFR (Cockcroft-Gault) 80.8 Glucose Level 98 mg/dL (70-99) Calcium Level 9.4 mg/dL (8.5-10.1) Triglycerides Level 103 mg/dL (0-150) Cholesterol Level 241 mg/dL (0-200) LDL Cholesterol, Calculated 170 mg/dL (0-100) VLDL Cholesterol, Calculated 21 mg/dL (0-40) Non-HDL Cholesterol Calculated 191 mg/dL (0-129) HDL Cholesterol 50 mg/dL (40-60) Cholesterol/HDL Ratio 4.8 Physical Exam HEENT: Neck Supple W Full Motion Chest: Symmetric LUNGS: Clear to Auscultation Heart: S1S2, RRR (SR no ectopies) Abdomen: Soft N/T Extremities: No Edema, No Calf Tenderness Neurology: alert, oriented, follow commands Assessment Assessment 1. Accelerated HTN: controlled. EF and WM nml 2. Dizziness and chest tightness: possibly from uncontrolled HTN 3. HLP 4. Noncompliance: last med use for HTn was 5 yrs ago. 5. Tobaccoism 6. Family hx of premature CAD Recommendations 1. Treadmill MPI as an outpt 2. Smoking cessation, dietitian for DASH diet 3. Continue lisinopril/chlorthalidone and add statin. Consider ASA for primary prevention 4. Follow up in 4 weeks 5. Discussed adherence ENRIQUE THOMAS MD 10/13/18 1730: CARDIO Progress Notes Assessment Assessment Patient seen and examined. Agree with TIMBER INSPECTOR's assessment and plan. Blood pressure better controlled Plan for ischemic evaluation with stress test as an outpatient ED MONTERROSO APRN Oct 13, 2018 12:15 ENRIQUE THOMAS MD Oct 13, 2018 17:30
[2018-10-13] MEDS ORDERED: ATORVASTATIN CALCIUM 40 MG TABLET. PO SCH (21:00)
== END 2018-10-13 11:55 | disposition home or self-care (01) | DRG 313 ==
LOC: ER 08:43 → 2 SOUTH 10:50
PROVIDERS: ADMIT Family Medicine; ATTEND Family Medicine
DX: R07.89 Other chest pain (principal); I10 Essential (primary) hypertension; E78.00 Pure hypercholesterolemia, unspecified; E78.5 Hyperlipidemia, unspecified; M19.90 Unspecified osteoarthritis, unspecified site; F17.210 Nicotine dependence, cigarettes, uncomplicated; Z82.49 Family history of ischemic heart disease and other diseases of the circulatory system; Z91.19 Patient's noncompliance with other medical treatment and regimen; Z88.1 Allergy status to other antibiotic agents; Z88.2 Allergy status to sulfonamides; Z71.6 Tobacco abuse counseling
CPT/HCPCS: 36415; 70450; 71045; 80048; 80061; 80307; 81001; 82553; 83735; 83880; 84443; 84484; 85025; 85379; 85610; 85730; 93005; 93306; 96374; 96375; 99406; J2270; J3490; 99285-25

== ENCOUNTER → 2018-11-06 | Outpatient (CLI) | payer BC ==
[2018-10-13 11:00] VITALS: BP 144/91
[~2018-11-06] MED LIST: ATOR40TA59 PO; CHLO25TA10 PO; LISI10TA2 PO; NITR0.4T SL; no home medications
--- NOTE | 2018-11-06 14:09 | RAD ---
MR#: [id number] Date of Study: 11/06/2018 Ordering Physician: ENRIQUE THOMAS Referring Physician: JERRY VAN Tech: KYLAH Islas, ARRJessica (R) (N) APPROVED REPORT Test Type: Exercise Stress Nurse/Tech: Radha Madison R.N. Test Indications: chest pain Cardiac History: smoker Medications: see ehr Medical History: see ehr Resting ECG: sr Resting Heart Rate: 71 bpm Resting Blood Pressure: 136/74mmHg Pretest Chest Pain: No chest pain Nurse/Tech Notes lungs cta, heart tones regular Consent: The procedure was explained to the patient in lay terms. Informed consent was witnessed. Lavon eout was entered into [employer]. History and Stress Test performed by RT Alex (R) (N) Stress Symptoms No chest pain or symptoms. POST EXERCISE Reason for Termination: Reached target heart rate Target HR: Yes Max HR: 169 bpm 96% of Maximum Predicted HR: 175 bpm Exercise duration: 7:15 min:sec, 3 Stage Exercise capacity: 10.0METs Max Blood Pressure: 180/82mmHg Blood Pressure response to exercise: Normal blood pressure response during stress. Heart Rate response to exercise: normal Chest Pain: No. Arrhythmia: No. INTERPRETATION Stress EKG Conclusion: The baseline EKG showed a sinus rhythm with nonspecific ST-T wave changes. The stress EKG showed further mild nonspecific ST T-wave changes that are not diagnostic of ischemia. No EKG evidence of stress-induced ischemia. Imaging Protocol IMAGE PROTOCOL: Rest Tc-99m/stress Tc-99m 1 day Rest: Stress: Viability: Radiopharm.Tc99m BxtyecchkEd60g Sestamibi Dose11.7mCi 33mCi Img Date 11/06/2018 11/06/2018 Inj-Img [id number]. 60min. Rest Admin Site:IV - Right AntecubitalAdministrator:RAJESH Gale Stress Admin Site: IV - Right AntecubitalAdministrator: RT Alex (R)(N) STRESS DATA End Diast. Vol.71.0mlAv. Heart Rate99.0bpm End Syst. Vol.17.0mlCO Index BSA0.0L/min Myocardial Odlh970.0gEject. Jjigdfho54.0% Stress Rates Pk. Fill Rate4.73EDV/secLVtime Pk. Fill 185.81msec Pk. Empty Rate7.64ESV/secLVtime Pk. Eject78.34msec 1/3 Pk. Fill1.50EDV/sec Stress Scores Regional WT2.00Summed WT14.00 Regional WM0.00Summed WM2.00 LV Perfusion The stress scans showed no significant defects. The rest scans showed no significant defects. Nuclear imaging shows no reversible ischemia or infarct. Wall Motion Left ventricular systolic function is normal with no regional wall motion abnormalities and an ejecti on fraction of greater than 70%. LV Perf. Quant 17 Seg. SSS1.00 17 Seg. SRS4.00 17 Seg. SDS0.00 Stress Defect Extent (% LAD)0.00Rest Defect Extent (% LAD)0.00Rev. Defect Extent (% LAD)0.00 Stress Defect Extent (% LCX) 0.00Rest Defect Extent (% LCX)0.00Rev. Defect Extent (% LCX)0.00 Stress Defect Extent (% RCA)2.20Rest Defect Extent (% RCA)0.00Rev. Defect Extent (% RCA)0.00 Stress Defect Extent (% ZOILA)0.90Rest Defect Extent (% ZOILA)0.00Rev. Defect Extent (% ZOILA)0.00 Conclusion 1. Good exercise tolerance. 2. No EKG evidence of stressed induced ischemia. 3. Nuclear imaging shows no reversible ischemia or infarct. 4. Left ventricular systolic function is normal with an ejection fraction of greater than 70%. 5. Low risk treadmill nuclear stress test. Signed by : Lazaro Lyn MD Electronically Approved : 11/06/2018 14:09:16
== END | disposition home or self-care (01) ==
LOC: NM 09:02
PROVIDERS: ATTEND Internal Medicine Cardiovascular Disease
DX: R07.9 Chest pain, unspecified (principal); F17.200 Nicotine dependence, unspecified, uncomplicated
CPT/HCPCS: 78452; 93017; 96376; A9500

== ENCOUNTER → 2020-07-29 | Outpatient (CLI) | payer BC ==
[~2020-07-29] MED LIST changes: +LISI10TA16 PO; -LISI10TA2 PO; -NITR0.4T SL; +NITR0.4T24 SL
--- NOTE | 2020-07-29 17:31 | CARD ---
MR#: [id number] Date of Study: 07/29/2020 Ordering Physician: ENRIQUE THOMAS, Referring Physician: ENRIQUE THOMAS Tech: Beth Griffin [facility] APPROVED REPORT EXAM: Two-dimensional and M-mode echocardiogram with Doppler and color Doppler. Other Information Quality : AverageHR: 79bpm Rhythm : NSR INDICATION Hypertension/HCVD RISK FACTORS Hypertension Hyperlipidemia Smoking 2D DIMENSIONS RVDd3.2 (2.9-3.5cm)Left Atrium(2D)3.5 (1.6-4.0cm) IVSd1.1 (0.7-1.1cm)Aortic Root(2D)4.1 (2.0-3.7cm) LVDd4.6 (3.9-5.9cm)LVOT Diameter2.5 (1.8-2.4cm) PWd1.1 (0.7-1.1cm)LVDs2.6 (2.5-4.0cm) FS (%) 44.1 %SV75.2 ml Aortic Valve AoV Peak Keyshawn.105.8cm/sAoV VTI21.8cm AO Peak GR.4.5mmHgLVOT Peak Keyshawn.102.6cm/s AO Mean GR.2mmHgAVA (VMAX)4.66cm2 Mitral Valve MV E Xtxacgyw86.5cm/sMV DECEL LJSC101ax MV A Hypwywar15.4cm/sE/A Ratio1.1 Pulmonary Valve PV Peak Muittbmh41.9cm/s Tricuspid Valve TR P. Gxtnrcna203eu/sTR Peak Gr.21mmHg LEFT VENTRICLE The left ventricle is normal size. There is borderline concentric left ventricular hypertrophy. The l eft ventricular systolic function is normal and the ejection fraction is within normal range. Estimat ed ejection fraction 55-60%. There is normal LV segmental wall motion. The left ventricular diastolic function and filling is normal for age. RIGHT VENTRICLE The right ventricle is normal size. There is normal right ventricular wall thickness. The right ventr icular systolic function is normal. ATRIA The left atrium size is normal. The right atrium size is normal. The interatrial septum is intact wit h no evidence for an atrial septal defect or patent foramen ovale as noted on 2-D or Doppler imaging. AORTIC VALVE The aortic valve is normal in structure and function. Doppler and Color Flow revealed no significant aortic regurgitation. There is no significant aortic valvular stenosis. MITRAL VALVE The mitral valve is normal in structure and function. There is no evidence of mitral valve prolapse. There is no mitral valve stenosis. Doppler and Color Flow revealed no mitral valve regurgitation note d. TRICUSPID VALVE The tricuspid valve is normal in structure and function. Doppler and Color Flow revealed trace tricus pid regurgitation. Estimated PAP 24 mmHg. There is no tricuspid valve stenosis. PULMONIC VALVE The pulmonary valve is normal in structure and function. Doppler and Color Flow revealed no pulmonic valvular regurgitation. GREAT VESSELS The aortic root is mildly enlarged. The IVC is normal in size and collapses >50% with inspiration. PERICARDIAL EFFUSION There is no evidence of significant pericardial effusion. Critical Notification Critical Value: No <Conclusion> The left ventricle is normal size. The left ventricular systolic function is normal and the ejection fraction is within normal range. Estimated ejection fraction 55-60%. There is borderline concentric left ventricular hypertrophy. Doppler and Color Flow revealed no significant aortic regurgitation. There is no significant aortic valvular stenosis. Doppler and Color Flow revealed no mitral valve regurgitation noted. Doppler and Color Flow revealed trace tricuspid regurgitation. Estimated PAP 24 mmHg. The aortic root is mildly enlarged. Signed by : Lazaro Lyn MD Electronically Approved : 07/29/2020 17:30:39
== END ==
LOC: ECHO 08:27
PROVIDERS: ATTEND Internal Medicine Cardiovascular Disease
DX: I11.9 Hypertensive heart disease without heart failure (principal)
CPT/HCPCS: 93306

== ENCOUNTER 2021-05-13 07:17 | Emergency (ER) | payer BC ==
[~2021-05-13] VITALS: Ht 177.8 cm; Wt 86.3 kg
[2021-05-13 07:21] VITALS: BP 177/101
[2021-05-13] MEDS ORDERED: IV NORMAL SALINE 1000ML BAG 1,000 ML IV SCH (07:30)
--- NOTE | 2021-05-13 07:33 | ED.ADGEN ---
Past Medical History Past Medical History: High Cholesterol, Hypertension Past Surgical History: No Surgical History Smoking Status: Current Every Day Smoker Alcohol Use: Occasionally Drug Use: None General Adult EDM: Chief Complaint: GI PROBLEM HPI: HPI: Patient is a 46-year-old male who arrives ambulatory to the emergency department complaining of the acute onset of lower abdominal pain. Patient states at roughly 230 this morning the patient began experiencing lower abdominal pain which she described as sharp and abrupt. Patient reports she had loose stool during this time as well which had bright red blood. Patient also reports slight nausea during this time as well. Patient points to the abdomen in the lower region near his bladder. He states when the pain happens it is very sharp however right now he has just a dull ache. He denies radiation of this pain. He further denies any vomiting or fevers. Additionally he denies any dysuria or previous events that have been consistent with this episode. He is awake, alert and nontoxic. Review of Systems: Review of Systems: Constitutional: Denies fever or chills. [] Eyes: Denies change in visual acuity. [] HENT: Denies nasal congestion or sore throat. [] Respiratory: Denies cough or shortness of breath. [] Cardiovascular: Denies chest pain or edema. [] GI: Reports nausea, abdominal pain with bloody diarrhea. Denies vomiting. [] : Denies dysuria. [] Musculoskeletal: Denies back pain or joint pain. [] Integument: Denies rash. [] Neurologic: Denies headache, focal weakness or sensory changes. [] Endocrine: Denies polyuria or polydipsia. [] Lymphatic: Denies swollen glands. [] Psychiatric: Denies depression or anxiety. [] Current Medications: Current Medications Medications (Trade) Dose Ordered Sig/Clemente Start Time Stop Time Status Last Admin Dose Admin Iohexol (Omnipaque 300 Mg/ml) 75 ml 1X ONCE 05/13/21 08:15 05/13/21 08:17 DC 05/13/21 08:28 75 ML Sodium Chloride 1,000 ml @ 1,000 mls/hr Q1H 05/13/21 07:30 05/13/21 08:29 DC 05/13/21 07:30 1,000 MLS/HR Allergies: Allergies: Allergies Coded Allergies Type Severity Reaction Last Updated Verified Sulfa (Sulfonamide Antibiotics) Adverse Reaction Severe "my kidneys shut down" 05/13/21 Yes Tetanus Vaccines and Toxoid Adverse Reaction Intermediate fever 05/13/21 Yes Uncoded Allergies Type Severity Reaction Last Updated Verified ERYTHROMYCIN Allergy Mild 05/13/21 Physical Exam: PE: Constitutional: Well developed, well nourished, no acute distress, non-toxic appearance. [] HENT: Normocephalic, atraumatic, bilateral external ears normal, oropharynx moist, no oral exudates, nose normal. [] Eyes: PERRLA, EOMI, conjunctiva normal, no discharge. [] Neck: Normal range of motion, no tenderness, supple, no stridor. [] Cardiovascular: Tachycardia.no murmur [] Lungs & Thorax: Bilateral breath sounds clear to auscultation [] Abdomen: Bowel sounds normal, soft, no tenderness, no masses, no pulsatile masses. [] Skin: Warm, dry, no erythema, no rash. [] Back: No tenderness, no CVA tenderness. [] Extremities: No tenderness, no cyanosis, no clubbing, ROM intact, no edema. [] Neurologic: Alert and oriented X 3, normal motor function, normal sensory function, no focal deficits noted. [] Psychologic: Affect normal, judgement normal, mood normal. [] Current Patient Data: Labs: Laboratory Tests Test 05/13/21 07:42 05/13/21 07:49 Urine Collection Type Unknown Urine Color Yellow Urine Clarity Clear Urine pH 6.0 (<5.0-8.0) Urine Specific [place] 1.015 (1.000-1.030) Urine Protein Negative mg/dL (NEG-TRACE) Urine Glucose (UA) Negative mg/dL (NEG) Urine Ketones (Stick) Negative mg/dL (NEG) Urine Blood Negative (NEG) Urine Nitrite Negative (NEG) Urine Bilirubin Negative (NEG) Urine Urobilinogen Dipstick 0.2 mg/dL (0.2 mg/dL) Urine Leukocyte Esterase Negative (NEG) Urine RBC 0 /HPF (0-2) Urine WBC Occ /HPF (0-4) Urine Squamous Epithelial Cells Occ /LPF Urine Bacteria 0 /HPF (0-FEW) Urine Mucus Slight /LPF White Blood Count 13.4 x10^3/uL (4.0-11.0) H Red Blood Count 4.61 x10^6/uL (4.30-5.70) Hemoglobin 15.4 g/dL (13.0-17.5) Hematocrit 43.9 % (39.0-53.0) Mean Corpuscular Volume 95 fL (79-100) Mean Corpuscular Hemoglobin 33 pg (25-35) Mean Corpuscular Hemoglobin Concent 35 g/dL (31-37) Red Cell Distribution Width 13.0 % (11.5-14.5) Platelet Count 230 x10^3/uL (140-400) Neutrophils (%) (Auto) 74 % (31-73) H Lymphocytes (%) (Auto) 16 % (24-48) L Monocytes (%) (Auto) 8 % (0-9) Eosinophils (%) (Auto) 2 % (0-3) Basophils (%) (Auto) 0 % (0-3) Neutrophils # (Auto) 9.9 x10^3/uL (1.8-7.7) H Lymphocytes # (Auto) 2.1 x10^3/uL (1.0-4.8) Monocytes # (Auto) 1.1 x10^3/uL (0.0-1.1) Eosinophils # (Auto) 0.3 x10^3/uL (0.0-0.7) Basophils # (Auto) 0.0 x10^3/uL (0.0-0.2) Sodium Level 134 mmol/L (136-145) L Potassium Level 4.0 mmol/L (3.5-5.1) Chloride Level 98 mmol/L (98-107) Carbon Dioxide Level 26 mmol/L (21-32) Anion Gap 10 (6-14) Blood Urea Nitrogen 10 mg/dL (8-26) Creatinine 1.1 mg/dL (0.7-1.3) Estimated GFR (Cockcroft-Gault) 71.4 BUN/Creatinine Ratio 9 (6-20) Glucose Level 135 mg/dL (70-99) H Calcium Level 9.2 mg/dL (8.5-10.1) Total Bilirubin 0.4 mg/dL (0.2-1.0) Aspartate Amino Transferase (AST) 24 U/L (15-37) Alanine Aminotransferase (ALT) 60 U/L (16-63) Alkaline Phosphatase 85 U/L (46-116) Total Protein 7.5 g/dL (6.4-8.2) Albumin 3.8 g/dL (3.4-5.0) Albumin/Globulin Ratio 1.0 (1.0-1.7) Laboratory Tests 05/13/21 07:49 Laboratory Tests 05/13/21 07:49 Vital Signs: Vital Signs Date Time Temp Pulse Resp B/P (MAP) Pulse Ox O2 Delivery O2 Flow Rate FiO2 05/13/21 07:21 98.3 118 14 177/101 (126) 97 Room Air 98.3 EKG: EKG: [] Heart Score: C/O Chest Pain: No Risk Factors: Risk Factors: DM, Current or recent (<one month) smoker, HTN, HLP, family history of CAD, obesity. Risk Scores: Score 0 - 3: 2.5% MACE over next 6 weeks - Discharge Home Score 4 - 6: 20.3% MACE over next 6 weeks - Admit for Clinical Observation Score 7 - 10: 72.7% MACE over next 6 weeks - Early Invasive Strategies Radiology/Procedures: Radiology/Procedures: [][facility] [address] [place] [address] IMAGING REPORT Signed [facility]: [id number] 1975 LOCATION: ER AGE: 46 SEX: M EXAM STATUS: REG ER ORD. PHYSICIAN: DIGNA DIAZ DO REASON: lower pain/bloody stools PROCEDURE: CT ABD PELV W/ IV CONTRST ONLY Exam Date: 05/13/2021 8:[address] ABDOMEN+PELVIS W Indication: Reason: lower pain/bloody stools / Spl. Instructions: omni 300 75ml / History: . TECHNIQUE: CT examination of the abdomen and pelvis was performed following the administration of nonionic intravenous contrast. One or more of the following dose reduction techniques were utilized: *Automated exposure control (AEC) *Adjustment of mA and/or kV according to patient size *Use of iterative reconstruction technique *CT scan done according to ALARA, or ALARA/IMAGE GENTLY FINDINGS: The visualized lung bases are clear. There is a small liver cyst. There are calcified granulomas in the spleen. The liver, gallbladder, spleen, pancreas, adrenal glands and kidneys are otherwise normal. Urinary bladder is normal in appearance. There is no bowel obstruction or inflammation. The appendix is normal. Mild atherosclerotic calcifications are seen. No lymphadenopathy or ascites is seen. Degenerative changes are seen in the spine. IMPRESSION: No evidence of acute intra-abdominal pathology. Electronically signed by: Nate Alfaro MD (05/13/2021 8:51 AM) [id number] DICTATED and SIGNED BY: NATE ALFARO MD DATE: 05/13/21 [id number] 0 Course & Med Decision Making: Course & Med Decision Making Pertinent Labs and Imaging studies reviewed. (See chart for details) The patient remains awake, alert and in no acute distress. CT imaging does not reveal any acute abdominal or pelvic abnormality. Furthermore the patient's blood work is within normal limits as it relates to his hemoglobin and hematocrit. Because the patient is without abdominal pain and has normal lab work in addition to a CT that does not demonstrate any acute abnormality, I deferred on rectal examination. I did stress to the patient however that if he has any continued bleeding that he really needs to follow-up with his primary care physician for GI referral for colonoscopy. I did tell him that despite having an normal CT, he could be at risk for colon cancer as he is a smoker and is rapidly approaching and at risk status based upon his age. The patient understands and states he will follow-up with his family physician for further evaluation. Should he develop any worsening pain, fevers, new vomiting or intractable diarrhea, I advised that he return to the emergency department. The patient understands and has agreed to do so. He is nontoxic-appearing and stable for discharge. [] Devin Disclaimer: Devin Disclaimer: This electronic medical record was generated, in whole or in part, using a voice recognition dictation system. Departure Departure Impression: Primary Impression: Abdominal pain Additional Impression: Diarrhea Disposition: HOME / SELF CARE / HOMELESS Condition: STABLE Referrals: UNKNOWN PCP NAME (PCP) Patient Instructions: Abdominal Pain, Bloody Diarrhea Additional Instructions: Follow-up with your primary care physician in the next 1 to 2 days for GI referral for colonoscopy. Scripts Ondansetron (ONDANSETRON ODT) 4 Mg Tab.rapdis 4 MG PO QID PRN for NAUSEA/VOMITING for 3 Days, #12 TAB Prov: DIGNA DIAZ DO 05/13/21 Dicyclomine Hcl (DICYCLOMINE HCL) 10 Mg Capsule 10 MG PO QID for 5 Days, #20 CAP Prov: DIGNA DIAZ DO 05/13/21 Problem Qualifiers DIGNA DIAZ DO May 13, 2021 07:33
[2021-05-13 08:02] LABS: BASO % 0 % (0-3); EOS # 0.3 x10^3/uL (0.0-0.7); EOS % 2 % (0-3); HEMATOCRIT 43.9 % (39.0-53.0); HEMOGLOBIN 15.4 g/dL (13.0-17.5); LYMPH # 2.1 x10^3/uL (1.0-4.8); LYMPH % 16 % (24-48); MEAN CORPUSCULAR HEMOGLOBIN 33 pg (25-35); MEAN CORPUSCULAR HGB CONC 35 g/dL (31-37); MEAN CORPUSCULAR VOLUME 95 fL (79-100); MONO # 1.1 x10^3/uL (0.0-1.1); MONO % 8 % (0-9); NEUT # 9.9 x10^3/uL (1.8-7.7); NEUT % 74 % (31-73); PLATELET COUNT 230 x10^3/uL (140-400); RED BLOOD COUNT 4.61 x10^6/uL (4.30-5.70); WHITE BLOOD COUNT 13.4 x10^3/uL (4.0-11.0)
[2021-05-13 08:03] LABS: BILIRUBIN,URINE NEGATIVE (NEG); CLARITY,URINE CLEAR; COLOR,URINE YELLOW; NITRITE,URINE NEGATIVE (NEG); PROTEIN,URINE NEGATIVE (NEG-TRACE); UROBILINOGEN,URINE 0.2 mg/dL (0.2 mg/dL)
[2021-05-13 08:07] LABS: BACTERIA,URINE 0 /HPF (0-FEW); RBC,URINE 0 /HPF (0-2); WBC,URINE OCC /HPF (0-4)
[2021-05-13 08:15] LABS: CALCIUM 9.2 mg/dL (8.5-10.1); CREATININE 1.1 mg/dL (0.7-1.3); GFR 71.4
[2021-05-13] MEDS ORDERED: IOHEXOL 300 MG/ML 100ML VIAL. IV ONE (08:15)
[2021-05-13 08:20] LABS: ALBUMIN 3.8 g/dL (3.4-5.0); TOTAL BILIRUBIN 0.4 mg/dL (0.2-1.0); TOTAL PROTEIN 7.5 g/dL (6.4-8.2)
--- NOTE | 2021-05-13 08:54 | RAD ---
Exam Date: 05/13/2021 8:[address] ABDOMEN+PELVIS W Indication: Reason: lower pain/bloody stools / Spl. Instructions: omni 300 75ml / History: . TECHNIQUE: CT examination of the abdomen and pelvis was performed following the administration of no nionic intravenous contrast. One or more of the following dose reduction techniques were utilized: *Automated exposure control (AEC) *Adjustment of mA and/or kV according to patient size *Use of iterative reconstruction technique *CT scan done according to ALARA, or ALARA/IMAGE GENTLY FINDINGS: The visualized lung bases are clear. There is a small liver cyst. There are calcified granulomas in the spleen. The liver, gallbladder, spleen, pancreas, adrenal glands and kidneys are otherwise normal. Urinary bladder is normal in appearance. There is no bowel obstruction or inflammation. The appendix is normal. Mild atherosclerotic calcifications are seen. No lymphadenopathy or ascites is seen. Degenerative changes are seen in the spine. IMPRESSION: No evidence of acute intra-abdominal pathology. Electronically signed by: Thomas Alfaro MD (05/13/2021 8:51 AM) [id number]
[2021-05-13] MEDS ORDERED: DICY10CA3 PO (09:10)
[2021-05-13] MEDS ORDERED: ONDA4TAB12 PO (09:10)
== END 2021-05-13 09:15 | disposition home or self-care (01) ==
LOC: ER 07:17
DX: R19.7 Diarrhea, unspecified (principal); E78.00 Pure hypercholesterolemia, unspecified; I10 Essential (primary) hypertension; F17.200 Nicotine dependence, unspecified, uncomplicated; Z88.2 Allergy status to sulfonamides; Z88.7 Allergy status to serum and vaccine
CPT/HCPCS: 36415; 74177; 80053; 81001; 85025; 96360; 99285; J7030; Q9967